=== PATIENT | male | born 1995 | race Caucasian/White ===

== ENCOUNTER 2022-04-07 19:45 | Emergency (ER) | payer BC ==
[2022-04-07] MEDS ORDERED: Ketorolac 30 MG/ML SDV IM ONE (22:45)
[2022-04-07 23:17] LABS: CARBON DIOXIDE,CO2 28.4 mmol/L (21.0-32.0); POTASSIUM,K 3.8 mmol/L (3.5-5.1)
== END 2022-04-08 00:02 | disposition home or self-care (01) ==
LOC: MW.ED 19:45
DX: R07.89 Other chest pain (principal); Z88.2 Allergy status to sulfonamides
CPT/HCPCS: 36415; 71045; 80053; 84484; 85025; 93005; 96372; 99285; J1885; 93010; 99282